=== PATIENT | male | born 1980 | race Caucasian/White ===

== ENCOUNTER 2017-09-06 07:37 | Day surgery (SDC) | payer OTHER ==
[~2017-09-06] VITALS: Ht 170.2 cm; Wt 83.9 kg
[~2017-09-06 07:37] MED LIST: CEFAZOLIN SOD 1 GM/ ISO 50 ML PREMIX IV ONE
[2017-09-06] MEDS ORDERED: SEVOFLURANE 15 MIN GAS INH ONE (13:05)
[2017-09-06] MEDS ORDERED: MIDAZOLAM HCL 5 MG/ML VIAL (VERSED) IV ONE (13:05)
[2017-09-06] MEDS ORDERED: ONDANSETRON HCL 4 MG/2 ML VIAL IVP ONE (13:05)
[2017-09-06] MEDS ORDERED: LR 1,000 ML IV.SOLN IV ONE (13:05)
[2017-09-06] MEDS ORDERED: NS IRRIG SOLN 1000 ML IR ONE (13:05)
[2017-09-06] MEDS ORDERED: PROPOFOL 200MG/ 20ML VIAL (DIPRIVAN) IV ONE (13:05)
[2017-09-06] MEDS ORDERED: fentaNYL CITRATE/PF 100 MCG/2 ML AMP IVP ONE (13:05)
[2017-09-06] MEDS ORDERED: LR 1,000 ML IV SCH (13:51)
[2017-09-06] MEDS ORDERED: METOCLOPRAMIDE HCL 10 MG/2 ML VIAL IVP PRN (14:00)
[2017-09-06] MEDS ORDERED: MORPHINE 4 MG/ML INJ. SYRINGE IVP PRN ×3 (14:00)
[2017-09-06] MEDS ORDERED: D5/0.45 NS 1,000 ML IV SCH (14:05)
[2017-09-06] MEDS ORDERED: HYDROcodone/ACETAMIN 5-325 MG TAB (NORCO/ VICODIN) PO PRN ×2 (14:15)
[2017-09-06] MEDS ORDERED: HYDROmorphone 1 MG INJ. 1 MG/ML AMPUL IVP PRN (14:15)
[2017-09-06] MEDS ORDERED: HYDROcodone/ACETAMIN 5-325 MG TAB (NORCO/ VICODIN) ONE (15:37)
[2017-09-06] MEDS ORDERED: HYDROcodone/ACETAMIN 5-325 MG TAB (NORCO/ VICODIN) PO ONE (15:40)
[2017-09-06 15:43] VITALS: BP_SYST 139
== END 2017-09-06 16:05 | disposition home or self-care (01) ==
LOC: SDS 07:37 → SMU 07:38 → SDS 16:05
PROVIDERS: ATTEND Colon & Rectal Surgery
DX: Z18.10 Retained metal fragments, unspecified (principal); Z30.2 Encounter for sterilization; F41.8 Other specified anxiety disorders; E78.1 Pure hyperglyceridemia
CPT/HCPCS: 10120; 55250; 88302; 88304; J0690; J2250; J2405; J2704; J3010; J7120; 88305